=== PATIENT | male | born 1970 | race Caucasian/White ===

== ENCOUNTER → 2016-10-03 | Outpatient (REF) ==
--- NOTE | 2016-10-03 08:50 | REP ---
Clinical: Pain and disability. Technique: AP, lateral, flexion/extension, bilateral oblique, and open mouth views of the cervical spine. Findings: Alignment and lordosis maintained. No acute fracture / compression injury or subluxation. Advanced degenerative disc osteophyte complex noted at the C5-6 and C6-7 levels including anterior osteophytes, endplate sclerosis and disc space narrowing. Open mouth view demonstrates normal C1-C2 articulation and odontoid process. Impression: Advanced degenerative changes involving the C5-6 and C6-7 levels. Signed by Mike Iverson MD 10/03/2016 08:42 A
--- NOTE | 2016-10-03 08:53 | REP ---
Clinical: Pain and disability. Technique: AP, lateral, coned-down views of the lumbosacral spine. Findings: Alignment and lordosis maintained. Mild degenerative changes at the L4-5 and L5-S1 levels including anterior spurring with endplate sclerosis and minimal disc space narrowing as well as mild hypertrophic facet changes. Chronic changes at T11-L1 including endplate irregularity with subtle anterior spurring and very minimal suspected chronic anterior compression deformity. Correlation with history of possible prior old trauma is recommended. Impression: Degenerative changes as described above. Signed by Mike Iverson MD 10/03/2016 08:45 A
--- NOTE | 2016-10-03 08:58 | REP ---
Clinical: Pain and disability. Technique: AP, lateral, bilateral oblique and sunrise views of the right and left knee. Findings: Right and left knee demonstrate increased sclerosis to the tibial surface with minimal medial joint space narrowing suggested (left greater than right). Small amount of chondrocalcinosis in the left joint space cannot be excluded. No evidence for acute fracture or dislocation. No obvious effusion. Impression: Mild and possibly age-related degenerative changes as noted above. Signed by Mike Iverson MD 10/03/2016 08:49 A
== END ==
LOC: M SMT 08:02
PROVIDERS: ATTEND Internal Medicine
DX: Z00.00 Encounter for general adult medical examination without abnormal findings (principal)